=== PATIENT | female | born 1995 | race Caucasian/White ===

== ENCOUNTER 2017-11-16 13:11 | Day surgery (SDC) | payer OTHER ==
[~2017-11-16 13:11] MED LIST: LIDOCAINE 2% (SDV) 5 ML INJ
[2017-11-16] MEDS ORDERED: PROPOFOL 60 ML (17:38)
[2017-11-16] MEDS ORDERED: METOCLOPRAMIDE 10 MG INJ (17:44)
[2017-11-16] MEDS ORDERED: PROPOFOL 20 ML (17:59)
[2017-11-16] MEDS ORDERED: ONDANSETRON 4 MG INJ IV (18:30)
[2017-11-16] MEDS ORDERED: FENTAnyl 50 MCG/ML VIAL IV ×2 (18:30)
== END 2017-11-16 19:40 | disposition home or self-care (01) ==
LOC: GIL 13:11 → SDS 13:11 → GIL 19:40
DX: K29.70 Gastritis, unspecified, without bleeding (principal); K64.8 Other hemorrhoids
CPT/HCPCS: 43239; 84703; 88305